=== PATIENT | male | born 1990 | race Caucasian/White ===

== ENCOUNTER → 2018-02-09 | Outpatient (REF) ==
[2018-02-09 15:49] LABS: RUBELLA IgG QUALITATIVE IMMUNE (IMMUNE)
[2018-02-10 10:12] LABS: RUBEOLA IgG ANTIBODY <25.0 AU/mL (Immune >29.9)
[2018-02-10 10:12] LABS: HERPES ZOSTER, VARICELLA IgG 204 index (Immune >165)
== END ==
LOC: M LAB 13:33
DX: Z00.00 Encounter for general adult medical examination without abnormal findings (principal)

== ENCOUNTER → 2018-03-31 | Outpatient (CLI) | payer MEDICARE ==
[2018-03-31 08:58] LABS: HEMOGLOBIN A1c 5.8 %
[2018-03-31 09:18] LABS: CHOLESTEROL RISK RATIO 3.282 (<5); FREE T4 1.04 NG/DL (0.76-1.46); THYROID STIMULATING HORMONE 1.43 uIU/ML (0.358-3.740)
[2018-04-01 11:21] LABS: TESTOSTERONE FREE (DIRECT) 15.7 pg/mL (9.3-26.5)
== END ==
LOC: M LAB 07:39
PROVIDERS: ATTEND Student in an Organized Health Care Education/Training Program
DX: Z13.29 Encounter for screening for other suspected endocrine disorder (principal); F52.4 Premature ejaculation; Z79.899 Other long term (current) drug therapy

== ENCOUNTER 2018-04-17 15:57 | Emergency (ER) | payer MEDICARE ==
[~2018-04-17] VITALS: Ht 175.3 cm; Wt 100.5 kg
[2018-04-17 21:57] VITALS: BP 148/70
--- NOTE | 2018-04-18 12:07 | REP ---
LEFT FOREARM, TWO VIEWS: There is no evidence of an acute fracture, dislocation or intrinsic bone disease. IMPRESSION: No fracture or dislocation. Electronically Signed by Tristian Aguirre MD 04/18/2018 11:30 P
--- NOTE | 2018-04-18 12:07 | REP ---
CHEST: Two views. There is no evidence of acute infiltrate. No pleural effusion is seen. The heart is normal in size. The mediastinal silhouette is unremarkable. The visualized osseous structures are intact. IMPRESSION: No acute pulmonary disease. Electronically Signed by Tristian Aguirre MD 04/18/2018 11:31 P
== END 2018-04-17 21:58 | disposition home or self-care (01) ==
LOC: M ED 15:57
DX: S20.219A Contusion of unspecified front wall of thorax, initial encounter (principal); S50.12XA Contusion of left forearm, initial encounter; Y04.8XXA Assault by other bodily force, initial encounter; Y07.11 Biological father, perpetrator of maltreatment and neglect; F17.200 Nicotine dependence, unspecified, uncomplicated

== ENCOUNTER → 2018-05-17 | Outpatient (REF) | payer MEDICARE ==
[2018-05-17 18:26] LABS: APPEARANCE, URINE CLEAR (CLEAR); BACTERIA, URINE AUTO NEGATIVE (NEGATIVE); BILIRUBIN, URINE AUTO NEGATIVE (NEGATIVE); BLOOD, URINE BLOOD NEGATIVE (NEGATIVE); CALCIUM OXALATE CRYSTALS SMALL; COLOR, URINE YELLOW (YELLOW); GLUCOSE, URINE (UA) AUTO NEGATIVE (NEGATIVE); KETONE, URINE AUTO NEGATIVE (NEGATIVE); LEUKOCYTE ESTERASE, URINE AUTO NEGATIVE (NEGATIVE); MUCUS, URINE SMALL (NEGATIVE); NITRITE, URINE AUTO NEGATIVE (NEGATIVE); PROTEIN, URINE AUTO NEGATIVE (NEGATIVE); RBC, URINE AUTO 3 /HPF (0-3); SPECIFIC GRAVITY URINE AUTO 1.024 (1.002-1.035); SQUAMOUS EPITHELIAL CELL UR AU 0 /HPF (0-6); WBC, URINE AUTO 2 /HPF (0-3)
== END ==
LOC: M SFHCPLAZ 17:11
PROVIDERS: ATTEND Student in an Organized Health Care Education/Training Program
DX: R35.0 Frequency of micturition (principal); F17.210 Nicotine dependence, cigarettes, uncomplicated
CPT/HCPCS: 81001; 87086; 90471; 90472; 90686; 90715; 99406; G0463

== ENCOUNTER 2018-05-23 17:35 | Emergency (ER) | payer MEDICARE ==
[~2018-05-23] VITALS: Ht 175.3 cm; Wt 96.4 kg
[2018-05-23 20:59] VITALS: BP 131/72
== END 2018-05-23 21:00 | disposition home or self-care (01) ==
LOC: M ED 17:35
DX: F43.0 Acute stress reaction (principal); I10 Essential (primary) hypertension

== ENCOUNTER → 2018-11-07 | Outpatient (CLI) | payer MEDICARE, MEDICAID ==
--- NOTE | 2018-11-10 12:39 | SLEEPCENT ---
DATE OF STUDY: 11/07/2018 ORDERING PROVIDER: MARCUS Cheatham Nocturnal polysomnography was performed for evaluation of sleep physiology in this patient with a history of excessive somnolence and nonrestorative sleep. The patient has a prior history of obstructive sleep apnea syndrome. 7 hours and 22 minutes of data were reviewed. There were 434 minutes of sleep identified. Sleep latency was short at 30 seconds. Rapid eye movement (REM) latency was short at 55 minutes. Sleep architecture was good with four REM cycles. There was good sleep progression. Overall sleep efficiency was 98.7%. The electrocardiogram showed a sinus rhythm with an average heart rate of 58 beats per minute. Electroencephalogram (EEG) showed normal waveforms for awake and sleep. There were only 27 respiratory events identified of 10 seconds in duration or greater for an apnea-hypopnea index of 3.7. The events were exclusive to the supine posture. Arousals from respiratory events occurred only 1.7 times per hour. Significant snoring was noted with some limb activity. Limb movement arousal index of 3.7. Saturations remained 90% plus throughout the night. IMPRESSION: Normal nocturnal polysomnography with snoring. RECOMMENDATION: As the patient's snoring and respiratory events were associated the supine posture, sleep position retraining for avoidance of the supine posture may help with the snoring problem. Edited 11/10/2018 aml
== END ==
LOC: M SLEEP 20:00
PROVIDERS: ATTEND Psychiatry & Neurology Neurology
DX: G47.10 Hypersomnia, unspecified (principal)

== ENCOUNTER → 2020-01-24 | Outpatient (CLI) | payer MEDICARE, MEDICAID ==
--- NOTE | 2020-01-24 16:49 | REPPI ---
INDICATION: BILATERAL KNEE PAIN COMPARISON: None. TECHNIQUE: AP, lateral, bilateral oblique and sunrise views right and left knee. FINDINGS: Allyn views demonstrate increased sclerosis along the anterior margins of the patella bilaterally (right greater than left) which may reflect a mild tendinopathy. Remainder of the bilateral knee radiographs appear symmetric and normal. IMPRESSION: Correlation is recommended to exclude mild patellar tendinopathy. Otherwise symmetric normal examination <Electronically signed by Jf Langford > 01/24/20 [id number]
== END ==
LOC: M PLAIMG 12:46
PROVIDERS: ATTEND Student in an Organized Health Care Education/Training Program
DX: M25.561 Pain in right knee (principal); M25.562 Pain in left knee